=== PATIENT | male | born 1955 | race Caucasian/White ===

== ENCOUNTER → 2023-08-26 07:53 | Outpatient (REF) | payer OTHER, SELFPAY | LOC: RCS 07:53 | PROVIDERS: ATTENDING PHYSICIAN Nurse Practitioner Family | DX: R73.01 Impaired fasting glucose (principal); R00.2 Palpitations; E78.2 Mixed hyperlipidemia; Z12.5 Encounter for screening for malignant neoplasm of prostate; Z00.00 Encounter for general adult medical examination without abnormal findings; Z87.19 Personal history of other diseases of the digestive system; Z13.89 Encounter for screening for other disorder | CPT/HCPCS: 93005; 93225; 93226 ==

== ENCOUNTER → 2023-09-10 09:00 | Outpatient (REF) | payer OTHER, SELFPAY | LOC: RCS 09:00 | PROVIDERS: ATTENDING PHYSICIAN Nurse Practitioner Family | DX: E78.2 Mixed hyperlipidemia (principal); R00.2 Palpitations | CPT/HCPCS: 93306 ==

== ENCOUNTER → 2024-12-18 13:40 | Outpatient (REF) | payer OTHER, SELFPAY | LOC: HWRAD 13:40 | PROVIDERS: ATTENDING PHYSICIAN Physician Assistant; FAMILY PHYSICIAN Internal Medicine | DX: J34.9 Unspecified disorder of nose and nasal sinuses (principal) | CPT/HCPCS: 70486 ==